=== PATIENT | male | born 1975 | race Two or more races ===

== ENCOUNTER 2023-09-11 13:41 | Emergency (ER) | payer MEDICAID, OTHER ==
[~2023-09-11] VITALS: Ht 162.6 cm; Wt 62.6 kg
[2023-09-11 18:55] VITALS: BP 122/80; PULSE 78; RESP 18; TEMP 98.7; O2SAT 98
[2023-09-11] MEDS: TETRACAINE HCL 0.5% OPTH(EYE) SOLN 4ML LEFTEYE ONE (19:02)
[2023-09-11] MEDS: FLUORESCEIN SOD OPTH TEST STRIP LEFTEYE ONE (19:03)
[2023-09-11] MEDS ORDERED: ERY05OO OP (19:16)
== END 2023-09-11 19:16 | disposition home or self-care (01) ==
LOC: ER 13:41
DX: T15.82XA Foreign body in other and multiple parts of external eye, left eye, initial encounter (principal); Z79.899 Other long term (current) drug therapy; Y92.89 Other specified places as the place of occurrence of the external cause